=== PATIENT | female | born 1980 | race Caucasian/White ===

== ENCOUNTER 2020-09-30 00:54 | Emergency (ER) | payer OTHER ==
[2020-09-30 02:55] LABS: BILIRUBIN NEGATIVE (NEGATIVE); BLOOD 3+ Ery/uL (NEGATIVE); CLARITY CLEAR (CLEAR); COLOR YELLOW (YELLOW); GLUCOSE (U) NORMAL (NORMAL); LEUKOCYTES NEGATIVE Leu/uL (NEGATIVE); NITRITE NEGATIVE (NEGATIVE); PROTEIN NEGATIVE (NEGATIVE); SPECIFIC GRAVITY 1.025 (1.001-1.030); UROBILINOGEN 0.2 mg/dL (0.2-1.0)
[2020-09-30 03:02] LABS: BASOPHIL 0.5 % (0-2); EOSINOPHIL 5.5 % (0-5); HCT 33.8 % (37.0-47.0); HGB 11.4 g/dl (12.5-16.0); LYMPHOCYTE 25.4 % (15-48); MCH 31.9 pg (25.0-31.0); MCHC 33.7 g/dL (32.0-36.0); MCV 94.7 fL (78.0-100.0); MONOCYTE 8.2 % (0-12); NEUTROPHIL 60.2 % (41-80); NRBC 0; PLT 220 K/uL (150-400); RBC 3.57 M/uL (4.20-5.40); RDW 13.1 % (11.5-14.0); WBC 8.2 K/uL (4.0-10.5)
[2020-09-30 03:03] LABS: BACTERIA TRACE; URINARY WBC RARE
[2020-09-30] MEDS ORDERED: ACETAMINOPHEN500 M1 PO (14:08)
[2020-09-30] MEDS ORDERED: DAILY VITE1 EACH PO (14:08)
[2020-09-30] MEDS ORDERED: VITAMIN B-121000 MC1 PO (14:08)
[2020-09-30] MEDS ORDERED: COLACE100 MG PO (14:08)
[2020-09-30] MEDS ORDERED: VENTOLIN HFA IN18 GM INH (14:08)
[2020-10-01] MEDS ORDERED: ATIVAN0.5 MG PO (10:39)
[2020-10-01] MEDS ORDERED: IBUPROFEN800 M1 PO (11:28)
== END 2020-09-30 04:30 | disposition home or self-care (01) ==
LOC: FER 00:54
PROVIDERS: Emergency Medicine Emergency Medical Services
DX: O20.0 Threatened abortion (principal); Z90.49 Acquired absence of other specified parts of digestive tract; Z98.890 Other specified postprocedural states; Z88.2 Allergy status to sulfonamides; Z88.5 Allergy status to narcotic agent; Z88.8 Allergy status to other drugs, medicaments and biological substances; Z88.6 Allergy status to analgesic agent; Z88.1 Allergy status to other antibiotic agents; Z3A.01 Less than 8 weeks gestation of pregnancy
CPT/HCPCS: 36415; 81001; 84702; 85025; 87088

== ENCOUNTER → 2020-10-01 | Day surgery (SDC) | payer OTHER ==
[~2020-10-01] MED LIST: ACETAMINOPHEN500 M1 PO; ATIVAN0.5 MG PO; COLACE100 MG PO; DAILY VITE1 EACH PO; IBUPROFEN800 M1 PO; VENTOLIN HFA IN18 GM INH; VITAMIN B-121000 MC1 PO
[2020-10-01 11:10] LABS: HCT 35.5 % (37.0-47.0); HGB 11.9 g/dl (12.5-16.0); MCHC 33.5 g/dL (32.0-36.0); MCV 95.4 fL (78.0-100.0); MPV 8.8 fL (6.0-9.5); RBC 3.72 M/uL (4.20-5.40); RDW 13.2 % (11.5-14.0); WBC 7.1 K/uL (4.0-10.5)
--- NOTE | 2020-10-01 13:39 | NUR ---
[id number] INFORMED PATIENT THERE WOULD BE A PRESCRIPTION FOR HER AT THE [facility]
== END | disposition home or self-care (01) ==
LOC: FAS 10:09
PROVIDERS: Obstetrics & Gynecology
DX: O02.1 Missed abortion (principal); F41.8 Other specified anxiety disorders; Z88.8 Allergy status to other drugs, medicaments and biological substances; Z88.6 Allergy status to analgesic agent; Z88.1 Allergy status to other antibiotic agents; Z88.2 Allergy status to sulfonamides; Z87.42 Personal history of other diseases of the female genital tract; Z98.890 Other specified postprocedural states; Z82.49 Family history of ischemic heart disease and other diseases of the circulatory system; Z20.822 Contact with and (suspected) exposure to COVID-19; Z98.84 Bariatric surgery status
CPT/HCPCS: 36415; 86850; 86900; 86901; J2250; J3010; J7050; J7120